=== PATIENT | female | born 1975 | race Two or more races ===

== ENCOUNTER → 2023-07-01 | Outpatient (CLI) | payer MEDICAID | END | disposition home or self-care (01) | LOC: Rad HDHVI 14:44 | PROVIDERS: ATTEND Internal Medicine Cardiovascular Disease | DX: R06.02 Shortness of breath (principal); R00.2 Palpitations | CPT/HCPCS: 93306 ==

== ENCOUNTER → 2023-07-20 | Outpatient (CLI) | payer MEDICAID ==
[~2023-07-20] VITALS: Ht 154.9 cm; Wt 89.8 kg
== END | disposition home or self-care (01) ==
LOC: Rad HDHVI 13:30
PROVIDERS: ATTEND Internal Medicine Cardiovascular Disease
DX: R06.02 Shortness of breath (principal); R00.2 Palpitations; R42 Dizziness and giddiness; I10 Essential (primary) hypertension; E78.00 Pure hypercholesterolemia, unspecified
CPT/HCPCS: 78452; 93017; 96374; A9500

== ENCOUNTER 2023-08-12 08:38 | Inpatient (IN) | payer MEDICAID ==
[~2023-08-12] VITALS: Ht 157.5 cm; Wt 103.3 kg
[2023-08-12] MEDS ORDERED: ADENOSINE 6 MG/2 ML INJ IV ONE ×2 (09:05→09:30)
[2023-08-12 09:12] LABS: Basophils # (auto) 0.1 10 ^3/uL (0-0.2); Basophils % (auto) 0.5 % (0.0-2.0); Eosinophils # (auto) 0.1 10 ^3/uL (0-0.8); Hemoglobin 12.1 g/dL (12.2-16.2); Lymphocytes # (auto) 2.5 10 ^3/uL (0.4-5.4); Mean Corpuscular Volume 73.9 fL (80.0-100.0)
[2023-08-12] MEDS ORDERED: METOPROLOL TARTRATE 1MG/1ML-5ML VIAL IV ONE ×2 (09:12→09:15)
[2023-08-12 09:14] LABS: Eosinophils % (auto) 0.7 % (0.0-7.0); Hematocrit 38.8 % (36.0-46.0); Mean Corpuscular Hemoglobin 23.1 pg (28.0-32.0); Mean Corpuscular Hgb Conc. 31.3 g/dL (32.0-36.0); Monocytes % (auto) 8.4 % (0.0-12.0); Neutrophils # (auto) 8.4 10 ^3/uL (1.6-8.6); Neutrophils % (auto) 69.4 % (37.0-80.0); Red Blood Cells 5.25 10^6/uL (4.0-5.20); White Blood Cell 12.1 10^3/uL (4.4-10.8)
[2023-08-12 09:25] LABS: Alanine Aminotransferase 19 U/L (7-40); Albumin 4.8 g/dL (3.2-4.8); Alkaline Phosphatase 78 U/L (46-116); Anion Gap 8 (5-15); Aspartate Aminotransferase 18 U/L (13-40); BUN/Creatinine Ratio 17.1 (10.0-20.0); Blood Urea Nitrogen 18 mg/dL (9-23); Calcium 9.3 mg/dL (8.7-10.4); Carbon Dioxide 25 mmol/L (20-30); Chloride 106 mmol/L (98-107); Glucose 106 mg/dL (74-106); Potassium 3.9 mmol/L (3.5-5.1); Sodium 139 mmol/L (136-145)
[2023-08-12 09:26] LABS: Bilirubin, Total 0.5 mg/dL (0.2-1.0); Total Protein 7.3 g/dL (5.7-8.2)
[2023-08-12 09:36] LABS: INR 1.04 (0.9-1.15); Partial Thromboplastin Time 27.9 SEC (24.5-34.5); Prothrombin Time 10.9 sec (9.3-11.8)
[2023-08-12] MEDS ORDERED: IOHEXOL 350 MG/ML 100ML IJ ONE (10:29)
[2023-08-12 10:45] VITALS: PULSE 81; RESP 18; O2SAT 99
[2023-08-12 12:16] LABS: Urine Bacteria NONE SEEN /hpf (None Seen); Urine Blood 3+ /uL (Negative); Urine Clarity Clear (Clear); Urine Color Yellow (Yellow); Urine Protein, UAD 1+ (Negative); Urine Specific Gravity 1.042 (1.001-1.035); Urine Urobilinogen Normal (Negative); Urine WBC 2 /hpf (0 - 5)
[2023-08-12 12:38] LABS: Amphetamine Screen, Urine Neg (NEGATIVE); Barbiturate Scree,Urine Neg (NEGATIVE); Benzodiazephine Screen, Urine Neg (NEGATIVE); Cannabinoid Screen, Urine Neg (NEGATIVE); Cocaine Screen, Urine Neg (NEGATIVE); Opiate Scree,Urine Neg (NEGATIVE); Phencyclidine Screen, Urine Neg (NEGATIVE)
[2023-08-12] MEDS ORDERED: MORPHINE SULFATE INJ 2 MG/ml SYRG IV PRN (13:00)
[2023-08-12] MEDS ORDERED: NITROGLYCERIN 0.4 MG SL TAB SL PRN (13:00)
[2023-08-12] MEDS ORDERED: DOCUSATE SOD 100 MG CAP PO PRN (13:00)
[2023-08-12] MEDS ORDERED: ACETAMINOPHEN 325 MG TAB PO PRN (13:00)
[2023-08-12] MEDS ORDERED: METOCLOPRAMIDE HCL 5MG/ml INJ 2ml VIAL IV PRN (13:00)
[2023-08-12] MEDS ORDERED: cefTRIAXone 1GM/50ML D5W 50 ML IV ONE (13:00)
[2023-08-12 13:53] LABS: Triglycerides 130 mg/dL (< 150)
[2023-08-12 13:54] LABS: LDL Cholesterol 124 mg/dL (< 100)
[2023-08-12 13:55] LABS: Cholesterol 174 mg/dL (< 200); HDL Cholesterol 43 mg/dL (40-59)
[2023-08-12 19:30] VITALS: PULSE 80; RESP 20; O2SAT 96
[2023-08-12] MEDS: METOPROLOL TARTRATE 25 MG TAB PO SCH (21:48)
[2023-08-12 23:21] VITALS: BP 113/64; PULSE 78; RESP 18; TEMP 98.3; O2SAT 99
[2023-08-12] MEDS ORDERED: METO25TA5 PO (23:45)
[2023-08-12] MEDS ORDERED: OMEP20TA PO (23:45)
[2023-08-12] MEDS ORDERED: SIMV20TA20 PO (23:45)
[2023-08-12] MEDS ORDERED: MAGN400T40 PO (23:45)
[2023-08-12] MEDS ORDERED: LEVO125T7 PO (23:45)
[2023-08-12] MEDS ORDERED: LOSA50TA46 PO (23:45)
[2023-08-13] VITALS (7 sets, daily range): BP systolic 101–131; BP diastolic 47–73; PULSE 71–83; RESP 16–17; TEMP 98.2–99.1; O2SAT 95–98
[2023-08-13] MEDS: LEVOTHYROXINE SODIUM 50 MCG TAB PO SCH (06:10)
[2023-08-13 07:30] LABS: Alanine Aminotransferase 13 U/L (7-40); Albumin 4.1 g/dL (3.2-4.8); Alkaline Phosphatase 63 U/L (46-116); Anion Gap 7 (5-15); Aspartate Aminotransferase 13 U/L (13-40); BUN/Creatinine Ratio 17.1 (10.0-20.0); Bilirubin, Total 0.4 mg/dL (0.2-1.0); Blood Urea Nitrogen 12 mg/dL (9-23); Calcium 8.6 mg/dL (8.7-10.4); Carbon Dioxide 25 mmol/L (20-30); Chloride 109 mmol/L (98-107); Glucose 118 mg/dL (74-106); Magnesium 2.1 mg/dL (1.6-2.6); Sodium 141 mmol/L (136-145); Total Protein 6.6 g/dL (5.7-8.2)
[2023-08-13 09:20] LABS: Basophils # (auto) 0 10 ^3/uL (0-0.2); Basophils % (auto) 0.5 % (0.0-2.0); Eosinophils # (auto) 0.1 10 ^3/uL (0-0.8); Eosinophils % (auto) 1.9 % (0.0-7.0); Hematocrit 35.7 % (36.0-46.0); Hemoglobin 11.3 g/dL (12.2-16.2); Lymphocytes # (auto) 2.1 10 ^3/uL (0.4-5.4); Lymphocytes % (auto) 33.3 % (10.0-50.0); Mean Corpuscular Hemoglobin 23.5 pg (28.0-32.0); Mean Corpuscular Hgb Conc. 31.5 g/dL (32.0-36.0); Mean Corpuscular Volume 74.4 fL (80.0-100.0); Monocytes # (auto) 0.5 10 ^3/uL (0-1.3); Monocytes % (auto) 7.2 % (0.0-12.0); Neutrophils # (auto) 3.6 10 ^3/uL (1.6-8.6); Neutrophils % (auto) 57.1 % (37.0-80.0); Red Cell Distribution Width 16.3 % (11.8-14.3); White Blood Cell 6.3 10^3/uL (4.4-10.8)
[2023-08-13] MEDS: cefTRIAXone 1GM/50ML D5W 50 ML IV SCH (10:16)
[2023-08-13] MEDS: ENOXAPARIN SOD 40 MG/0.4 ML SYRINGE SC SCH (10:28)
[2023-08-13] MEDS: METOPROLOL TARTRATE 25 MG TAB PO SCH ×2 (10:29→22:01)
[2023-08-13] MEDS: PANTOPRAZOLE 40 MG TAB PO SCH (10:30)
[2023-08-13] MEDS ORDERED: ERGOCALCIFEROL 50,000 UNIT(1.25MG) CAP PO SCH (11:15)
[2023-08-13] MEDS ORDERED: CALCIUM GLUC 1,000mg/50ml-NS 50 ML IV ONE (11:15)
[2023-08-13] MEDS: ATORVASTATIN 20 MG TAB PO SCH (22:00)
[2023-08-14 05:00] VITALS: BP 107/55; PULSE 70; RESP 15; TEMP 98.4; O2SAT 95
[2023-08-14] MEDS: LEVOTHYROXINE SODIUM 50 MCG TAB PO SCH (06:19)
[2023-08-14 07:00] LABS: Basophils # (auto) 0 10 ^3/uL (0-0.2); Eosinophils # (auto) 0.1 10 ^3/uL (0-0.8); Monocytes # (auto) 0.5 10 ^3/uL (0-1.3)
[2023-08-14 07:06] LABS: Basophils % (auto) 0.6 % (0.0-2.0); Eosinophils % (auto) 2.1 % (0.0-7.0); Hematocrit 36.5 % (36.0-46.0); Hemoglobin 11.4 g/dL (12.2-16.2); Lymphocytes # (auto) 1.7 10 ^3/uL (0.4-5.4); Lymphocytes % (auto) 25.7 % (10.0-50.0); Mean Corpuscular Hemoglobin 23.3 pg (28.0-32.0); Mean Corpuscular Hgb Conc. 31.3 g/dL (32.0-36.0); Mean Corpuscular Volume 74.3 fL (80.0-100.0); Monocytes % (auto) 7.2 % (0.0-12.0); Neutrophils # (auto) 4.3 10 ^3/uL (1.6-8.6); Neutrophils % (auto) 64.4 % (37.0-80.0); Red Cell Distribution Width 15.7 % (11.8-14.3); White Blood Cell 6.7 10^3/uL (4.4-10.8)
[2023-08-14 07:50] LABS: Alanine Aminotransferase 14 U/L (7-40); Albumin 4.4 g/dL (3.2-4.8); Alkaline Phosphatase 65 U/L (46-116); Anion Gap 7 (5-15); Aspartate Aminotransferase 14 U/L (13-40); BUN/Creatinine Ratio 14.7 (10.0-20.0); Blood Urea Nitrogen 11 mg/dL (9-23); Calcium 9.4 mg/dL (8.5-10.1); Carbon Dioxide 25 mmol/L (20-30); Chloride 108 mmol/L (98-107); Glucose 116 mg/dL (74-106); Potassium 4.1 mmol/L (3.5-5.1); Sodium 140 mmol/L (136-145)
[2023-08-14 07:51] LABS: Bilirubin, Total 0.3 mg/dL (0.2-1.0)
[2023-08-14 08:00] VITALS: BP 120/61; PULSE 72; PULSE 84; RESP 17; TEMP 98.1; O2SAT 93
[2023-08-14] MEDS: PANTOPRAZOLE 40 MG TAB PO SCH (08:40)
[2023-08-14] MEDS: cefTRIAXone 1GM/50ML D5W 50 ML IV SCH (08:41)
[2023-08-14] MEDS: METOPROLOL TARTRATE 25 MG TAB PO SCH ×2 (08:41→21:08)
[2023-08-14] MEDS: ENOXAPARIN SOD 40 MG/0.4 ML SYRINGE SC SCH (08:41)
[2023-08-14 09:31] VITALS: BP 120/61; PULSE 72; RESP 17; TEMP 98.1; O2SAT 93
[2023-08-14 17:14] VITALS: BP 119/75; PULSE 77; RESP 17; TEMP 98.2; O2SAT 96
[2023-08-14 20:00] VITALS: PULSE 74; RESP 17; O2SAT 93
[2023-08-14] MEDS: ATORVASTATIN 20 MG TAB PO SCH (21:07)
[2023-08-14 22:00] VITALS: BP 118/79; PULSE 77; RESP 18; TEMP 98.2; O2SAT 97
[2023-08-15 05:00] VITALS: BP 131/79; PULSE 72; RESP 18; TEMP 98.3; O2SAT 95
[2023-08-15] MEDS: LEVOTHYROXINE SODIUM 50 MCG TAB PO SCH (06:17)
[2023-08-15 08:00] VITALS: PULSE 74; PULSE 77; RESP 14; O2SAT 93
[2023-08-15 09:00] VITALS: BP 125/77; PULSE 68; RESP 16; TEMP 98.7; O2SAT 96
[2023-08-15] MEDS: PANTOPRAZOLE 40 MG TAB PO SCH (09:22)
[2023-08-15] MEDS: ENOXAPARIN SOD 40 MG/0.4 ML SYRINGE SC SCH (09:22)
[2023-08-15] MEDS: cefTRIAXone 1GM/50ML D5W 50 ML IV SCH (09:22)
[2023-08-15] MEDS: METOPROLOL TARTRATE 25 MG TAB PO SCH (09:23)
[2023-08-15 10:16] LABS: Basophils # (auto) 0 10 ^3/uL (0-0.2); Basophils % (auto) 0.5 % (0.0-2.0); Eosinophils # (auto) 0.1 10 ^3/uL (0-0.8); Eosinophils % (auto) 1.6 % (0.0-7.0); Hematocrit 36.6 % (36.0-46.0); Hemoglobin 11.6 g/dL (12.2-16.2); Lymphocytes # (auto) 1.5 10 ^3/uL (0.4-5.4); Lymphocytes % (auto) 23.8 % (10.0-50.0); Mean Corpuscular Hemoglobin 23.4 pg (28.0-32.0); Mean Corpuscular Hgb Conc. 31.7 g/dL (32.0-36.0); Mean Corpuscular Volume 74.1 fL (80.0-100.0); Monocytes # (auto) 0.4 10 ^3/uL (0-1.3); Monocytes % (auto) 5.7 % (0.0-12.0); Neutrophils # (auto) 4.4 10 ^3/uL (1.6-8.6); Neutrophils % (auto) 68.4 % (37.0-80.0); Red Blood Cells 4.94 10^6/uL (4.0-5.20); Red Cell Distribution Width 15.7 % (11.8-14.3); White Blood Cell 6.4 10^3/uL (4.4-10.8)
[2023-08-15 10:31] LABS: % Iron Saturation 8.5 % (15-50)
[2023-08-15 10:34] LABS: Alanine Aminotransferase 15 U/L (7-40); Albumin 4.6 g/dL (3.2-4.8); Alkaline Phosphatase 73 U/L (46-116); Anion Gap 8 (5-15); Aspartate Aminotransferase 15 U/L (13-40); BUN/Creatinine Ratio 12.3 (10.0-20.0); Blood Urea Nitrogen 9 mg/dL (9-23); Calcium 9.3 mg/dL (8.5-10.1); Carbon Dioxide 24 mmol/L (20-30); Chloride 108 mmol/L (98-107); Glucose 131 mg/dL (74-106); Potassium 3.6 mmol/L (3.5-5.1); Sodium 140 mmol/L (136-145)
[2023-08-15 10:35] LABS: Bilirubin, Total 0.3 mg/dL (0.2-1.0); Total Protein 7.2 g/dL (5.7-8.2)
[2023-08-15 10:41] LABS: Magnesium,Therapeutic 1.87 mg/dL (4.0-7.1)
[2023-08-15 13:19] VITALS: BP 141/89; PULSE 77; RESP 20; TEMP 98.7; O2SAT 98
[2023-08-15 16:45] VITALS: BP 153/87; PULSE 84; RESP 12; TEMP 37.1; O2SAT 92
[2023-08-15 17:20] VITALS: BP 128/68; PULSE 76; RESP 18; TEMP 98.3; O2SAT 94
== END 2023-08-15 18:38 | disposition home or self-care (01) | DRG 201 ==
LOC: ER 08:38 → TELE 13:03 → TELE-WESTW 22:39
PROVIDERS: ADMIT Internal Medicine; ATTEND Internal Medicine
DX: I47.19 Other supraventricular tachycardia (principal); I21.A1 Myocardial infarction type 2; I10 Essential (primary) hypertension; N39.0 Urinary tract infection, site not specified; E03.9 Hypothyroidism, unspecified; K21.9 Gastro-esophageal reflux disease without esophagitis; E78.5 Hyperlipidemia, unspecified; E55.9 Vitamin D deficiency, unspecified; Z91.148 Patient's other noncompliance with medication regimen for other reason
CPT/HCPCS: 36415; 71045; 71275; 80053; 80061; 80307; 81001; 82306; 82607; 82746; 83036; 83540; 83550; 83615; 83735; 83880; 84443; 84484; 85025; 85045; 85379; 85610; 85730; 87086; 92960; 93005; 93306; 96365; 96375; 99291; G0378; J0153; J0696

== ENCOUNTER → 2023-09-21 | Outpatient (CLI) | payer MEDICAID ==
[~2023-09-21] MED LIST: IOHEXOL 350 MG/ML 100ML IJ ONE; LEVO125T7 PO; LIDOCAINE 2%HCL (LOCAL ANESTH.) INJ 20ML MDV ONE; LOSA50TA46 PO; MAGN400T40 PO; METO25TA5 PO; OMEP20TA PO; SIMV20TA20 PO
[2023-09-21 08:55] VITALS: BP 144/67; PULSE 72; RESP 16; O2SAT 97
[2023-09-21 09:11] VITALS: BP 134/63; PULSE 70; RESP 16; O2SAT 97
== END | disposition home or self-care (01) ==
LOC: CHF HDHVI 08:47
PROVIDERS: ATTEND Internal Medicine Cardiovascular Disease
DX: Z01.818 Encounter for other preprocedural examination (principal); R94.31 Abnormal electrocardiogram [ECG] [EKG]; R00.2 Palpitations; R06.02 Shortness of breath; R07.9 Chest pain, unspecified
CPT/HCPCS: 93005; G0463

== ENCOUNTER 2023-09-22 08:22 | Day surgery (SDC) | payer MEDICAID ==
[2023-09-21 10:30] LABS: Basophils # (auto) 0 10 ^3/uL (0-0.2); Eosinophils # (auto) 0.2 10 ^3/uL (0-0.8); Lymphocytes # (auto) 1.8 10 ^3/uL (0.4-5.4); Monocytes # (auto) 0.6 10 ^3/uL (0-1.3); Monocytes % (auto) 7.3 % (0.0-12.0)
[2023-09-21 10:32] LABS: Basophils % (auto) 0.4 % (0.0-2.0); Eosinophils % (auto) 2.1 % (0.0-7.0); Hematocrit 36.8 % (36.0-46.0); Hemoglobin 11.7 g/dL (12.2-16.2); Lymphocytes % (auto) 23.9 % (10.0-50.0); Mean Corpuscular Hemoglobin 23.3 pg (28.0-32.0); Mean Corpuscular Hgb Conc. 31.7 g/dL (32.0-36.0); Mean Corpuscular Volume 73.4 fL (80.0-100.0); Neutrophils % (auto) 66.3 % (37.0-80.0); Red Blood Cells 5.02 10^6/uL (4.0-5.20); Red Cell Distribution Width 15.6 % (11.8-14.3); White Blood Cell 7.5 10^3/uL (4.4-10.8)
[2023-09-21 10:39] LABS: Chloride 105 mmol/L (98-107); Potassium 4.3 mmol/L (3.5-5.1); Sodium 139 mmol/L (136-145)
[2023-09-21 10:40] LABS: Anion Gap 7 (5-15); Carbon Dioxide 27 mmol/L (20-30)
[2023-09-21 10:41] LABS: Calcium 9.5 mg/dL (8.5-10.1)
[2023-09-21 10:45] LABS: BUN/Creatinine Ratio 9.9 (10.0-20.0); Blood Urea Nitrogen 7 mg/dL (9-23); Glucose 99 mg/dL (74-106)
[2023-09-21 10:50] LABS: INR 1.05 (0.9-1.15); Partial Thromboplastin Time 25.5 SEC (24.5-34.5)
[~2023-09-22] VITALS: Ht 154.9 cm; Wt 93.4 kg
[2023-09-22] VITALS (8 sets, daily range): BP systolic 111–127; BP diastolic 44–73; PULSE 67–75; RESP 16–20; O2SAT 95–100
[~2023-09-22 08:22] MED LIST changes: -IOHEXOL 350 MG/ML 100ML IJ ONE; -LIDOCAINE 2%HCL (LOCAL ANESTH.) INJ 20ML MDV ONE
[2023-09-22] MEDS ORDERED: fentaNYL CITRATE 100 MCG/2 ML VL ONE (11:45)
[2023-09-22] MEDS ORDERED: ANGIOMAX 250 MG VIAL IV ONE (11:45)
[2023-09-22] MEDS ORDERED: MIDAZOLAM HCL 2MG/2ML 2ml VIAL (1mg/ml) ONE (11:46)
[2023-09-22] MEDS ORDERED: SODIUM CHL 0.9% 0 ML ONE (11:46)
[2023-09-22] MEDS ORDERED: IOHEXOL 350 MG/ML 100ML IJ ONE (12:35)
== END 2023-09-22 16:10 | disposition home or self-care (01) ==
LOC: CATH 08:22
PROVIDERS: ATTEND Internal Medicine Cardiovascular Disease
DX: R07.9 Chest pain, unspecified (principal); Z83.3 Family history of diabetes mellitus; Z82.49 Family history of ischemic heart disease and other diseases of the circulatory system
CPT/HCPCS: 36415; 80048; 85025; 85610; 85730; 93458; C1894; J2250; J3010; Q9967; 99152

== ENCOUNTER 2025-05-14 13:29 | Inpatient (IN) | payer MEDICAID, OTHER, SELFPAY ==
[~2025-05-14] VITALS: Ht 160 cm; Wt 86.0 kg
[~2025-05-14 13:29] MED LIST changes: +LOSA-534 PO; -LOSA50TA46 PO
--- NOTE | 2025-05-14 14:45 | ED.PDOC ---
HPI (NEURO) HPI Comments 49-year-old female with a history of hypertension, dyslipidemia, hypothyroid, GERD, SVT, non STEMI type 2 referred by [facility] for evaluation of dizziness, blurred vision, sweating, generalized weakness, headache, body aches and palpitations since yesterday. Patient notes the symptoms are intermittent and not occurring at the time of our initial evaluation. States when the symptoms occur, she feels as though she may pass out. She denies fever, sick contacts, focal weakness, chest pain, shortness of breath, nausea or vomiting. Chief Complaint: General Weakness Time Seen by MD: 14:00 Reviewed Notes: Nurses Notes, Medications, Allergies Information Source: Patient Mode of Arrival: Ambulatory Severity: Moderate Timing: Days Duration: Since onset Prehospital treatment: None Headache Location: Generalized Weakness Location: Generalized Onset: At rest Circumstances: Spontaneous Symptoms: Vertigo, Weakness, Change of vision Before: Normal During: Awake After: Normal Mentation History of: Hypertension Modifying factors: Nothing Associated Signs and Symptoms: Headache, Palpitations Past Medical History PAST MEDICAL HISTORY: GERD, High Lipids, HTN, Thyroid Past Medical History (Other): SVT Surgical History: Denies all surgeries UTILITY DRIVER History: No Pertinent UTILITY DRIVER History Family History Family History: Unknown Social History Smoker: Non-Smoker Alcohol: Denies ETOH Use Drugs: Denies Drug Use Lives In: Home Constitutional: reports: fatigue; denies: chills, diaphoresis, fever, malaise, sweats, weakness, others EENTM: reports: blurred vision; denies: double vision, ear bleeding, ear discharge, ear drainage, ear pain, ear ringing, eye pain, eye redness, hearing loss, mouth pain, mouth swelling, nasal discharge, nose bleeding, nose con gestion, nose pain, photophobia, tearing, throat pain, throat swelling, voice changes, others Respiratory: denies: cough, hemoptysis, orthopnea, SOB at rest, shortness of breath, SOB with excertion, stridor, wheezing, others Cardiovascular: denies: chest pain, dizzy spells, diaphoresis, Dyspnea on exertion, edema, irregular heart beat, left arm pain, lightheadedness, palpitations, PND, syncope, others Gastrointestinal: denies: abdomen distended, abdominal pain, blood streaked bowels, constipated, diarrhea, dysphagia, difficulty swallowing, hematemesis, melena, nausea, poor appetite, poor fluid intake, rectal bleeding, rectal pain, vomiting, others Genitourinary: denies: abnormal vagina bleeding, burning, dyspareunia, dysuria, flank pain, frequency, hematuria, incontinence, pain, , vagina d ischarge, urgency, others Neurological: reports: dizziness, headache; denies: fainting, left sided numbness, left sided weakness, numbness, paresthesia, pre-existing deficit, right sided numbness, right sided weakness, seizure, speech problems, tingling, tremors, weakness, others Musculoskeletal: denies: back pain, gout, joint pain, joint swelling, muscle pain, muscle stiffness, neck pain, others Integumetry: denies: bruises, change in color, change in hair/nails, dryness, laceration, lesions, lumps, rash, wounds, others Allergic/Immunocompromised: denies: Difficulty Healing, Frequent Infections, Hives, Itching, others Hematologic/Lymphatic: denies: anemia, blood clots, easy bleeding, easy bruising, swollen glands, others Endocrine: denies: excessive hunger, excessive sweating, excessive thirst, excessive urination, flushing, intolerance to cold, intolerance to heat, unexplained weight gain, unexplained weight loss, others Psychiatric: denies: anxiety, bipolar disorder, depression, hopeless, panic disorder, schizophrenia, sleepless, suicidal, others All Other Systems: Reviewed and Negative Physical Exam General Appearance: No Apparent Distress, Obese HEENT: Other (Pupils and face symmetric. Moist mucous membranes.) Neck: Full Range of Motion, Normal Inspection Respiratory: Lungs Clear, No Accessory Muscle Use, No Respiratory Distress, Normal Breath Sounds Cardiovascular: No Edema, No JVD, Regular Rate/Rhythm Breast Exam: Deferred Gastrointestinal: Non Tender, Soft Genitalia: Deferred Pelvic: Deferred Rectal: Deferred Extremities: Normal inspection, Normal range of motion, Non-tender, No pedal edema Neurologic: Alert (Oriented x4), Normal Affect, Normal Mood, Other (Ambulatory) Cerebellar Function: NOT DONE Reflexes: NOT DONE Skin: Dry, Normal Color, Warm Lymphatic: NOT DONE Was a procedure done? Was a procedure done?: No Differential Diagnosis (SZ) Seizure: CVA/TIA CVA: Electrolyte Imbalance General Weakness: Anemia, Dehydration, Dysrhythmia, Hypovolemia, Myocardial infarction Headache: Cluster, Migraine, Intracerebral Hemorrhage, Subarachnoid Hemorrhage, Subdural Hemorrhage, Mass Lesion X-Ray, Labs, Meds, VS Vital Signs Date Time Temp Pulse Resp B/P (MAP) Pulse Ox O2 Delivery O2 Flow Rate FiO2 05/14/25 18:12 98.7 72 18 134/88 (103) 99 98.7 05/14/25 13:44 79 05/14/25 13:35 99.0 82 18 131/98 95 99.0 Lab Test 05/14/25 18:30 05/14/25 17:39 05/14/25 15:40 05/14/25 14:58 Range/Units Urine Color Light-yellow Yellow Urine Clarity Turbid H Clear Urine pH 6.5 5.0-9.0 Urine Specific [place] 1.023 1.001-1.035 Urine Protein 1+ H Negative Urine Ketones Negative Negative Urine Blood Negative Negative /uL Urine Nitrite Negative Negative Urine Bilirubin Negative Negative Urine Urobilinogen Normal Negative mg/dL Urine Leukocyte Esterase Trace Negative /uL Urine RBC <1 0 - 4 /hpf Urine Microscopic WBC 11 H 0-5 /HPF Urine Squamous Epithelial Cells Mod <5 /hpf Urine Bacteria Few H None Seen /hpf Urine Hyaline Casts Few 0 - 2 /lpf Urine Mucus Few None Seen Urine Glucose Normal Normal mg/dL Troponin I High Sensitivity < 3 L < 3 L < 3 L </=34 ng/L White Blood Count 6.5 4.4-10.8 10^3/uL Red Blood Count 4.91 4.0-5.20 10^6/uL Hemoglobin 11.8 L 12.2-16.2 g/dL Hematocrit 36.2 36.0-46.0 % Mean Corpuscular Volume 73.6 L 80.0-100.0 fL Mean Corpuscular Hemoglobin 24.1 L 28.0-32.0 pg Mean Corpuscular Hemoglobin Concent 32.7 32.0-36.0 g/dL Red Cell Distribution Width 16.0 H 11.8-14.3 % Platelet Count 348 140-450 10^3/uL Mean Platelet Volume 7.0 6.9-10.8 fL Neutrophils (%) (Auto) 70.9 37.0-80.0 % Lymphocytes (%) (Auto) 21.7 10.0-50.0 % Monocytes (%) (Auto) 5.9 0.0-12.0 % Eosinophils (%) (Auto) 1.1 0.0-7.0 % Basophils (%) (Auto) 0.4 0.0-2.0 % Neutrophils # (Auto) 4.6 1.6-8.6 10 ^3/uL Lymphocytes # (Auto) 1.4 0.4-5.4 10 ^3/uL Monocytes # (Auto) 0.4 0-1.3 10 ^3/uL Eosinophils # (Auto) 0.1 0-0.8 10 ^3/uL Basophils # (Auto) 0 0-0.2 10 ^3/uL Nucleated Red Blood Cells 0.0 % Sodium Level 143 136-145 mmol/L Potassium Level 4.0 3.5-5.1 mmol/L Chloride Level 106 98-107 mmol/L Carbon Dioxide Level 28 20-31 mmol/L Anion Gap 9 5-15 Blood Urea Nitrogen 12 9-23 mg/dL Creatinine 0.89 0.550-1.02 mg/dL Glomerular Filtration Rate Calc 80 >90 mL/min BUN/Creatinine Ratio 13.5 10.0-20.0 Serum Glucose 108 H 74-106 mg/dL Calcium Level 9.4 8.7-10.4 mg/dL B-Type Natriuretic Peptide 8.69 0-100 pg/mL [place] [id number] Ph: [phone] DIAGNOSTIC IMAGING Diagnostic Imaging Report : [id number] Signed PATIENT: KARTHIK CHARLESAACCT: [id number] UNIT: [id number] : 1975 LOC: ER ROOM / BED: / AGE / SEX: 49 / F ADM STATUS: REG ER SERVICE [id number] ORDERING PHYSICIAN: KIEL POE MD PROCEDURE(s): CXRP - CHEST PORTABLE REASON: gen weak ORDER NUMBER(s): [id number], ACCESSION NUMBER(s): [id number] CHEST RADIOGRAPH Indication: gen weak Technique: Single frontal view of the chest was obtained Comparison: XY CHEST TWO VIEWS ROUTINE on DOS: 09/21/23, CT CT ANGIO CHEST CONTRAST on DOS: 08/12/23, XY CHEST PORTABLE on DOS: 08/12/23 FINDINGS: Lines and Tubes: None Lungs: No focal consolidation. Pleura: No effusion. No pneumothorax. Cardiomediastinal contours: Unremarkable Bones: No acute osseous abnormality. IMPRESSION: No acute cardiopulmonary disease. ATED BY: MONIKA DAY DO DICTATED DATE/TIME: 05/14/251741 SIGNED BY: MONIKA DAY DO SIGNED DATE/TIME: 05/14/251741 CC: [place] [id number] Ph: [phone] DIAGNOSTIC IMAGING Diagnostic Imaging Report : [id number] Signed PATIENT: STACI CHARLESCT: [id number] UNIT: [id number] : 1975 LOC: ER ROOM / BED: / AGE / SEX: 49 / F ADM STATUS: REG ER SERVICE [id number] ORDERING PHYSICIAN: KIEL POE MD PROCEDURE(s): HWOCT - HEAD WITHOUT CONTRAST REASON: dizzy, blurred vision, gen weak ORDER NUMBER(s): [id number], ACCESSION NUMBER(s): [id number] CLINICAL HISTORY: dizzy, blurred vision, gen weak TECHNIQUE: Helical scanning was performed of the head from the skull base to the vertex. Multiplanar reconstructions were performed. This exam was performed according to our departmental dose optimization program. Up-to-date CT equipment and radiation dose reduction techniques are utilized as appropriate. CTDI 57.7 DLP 139.2 COMPARISON: None FINDINGS: There is no evidence for acute intracranial hemorrhage, acute ischemic changes, mass, mass effect, or extra-axial fluid collection. There is no hydrocephalus or midline shift. There is no effacement of the cerebral sulci and basal subarachnoid cisterns. The leung-white matter differentiation is well maintained. The imaged paranasal sinuses are clear. The savanah is expanded and empty. IMPRESSION: NO ACUTE INTRACRANIAL ABNORMALITY SEEN. EXPANDED EMPTY SAVANAH. ATED BY: JACKY PINEDA MD DICTATED DATE/TIME: 05/14/251726 SIGNED BY: JACKY PINEDA MD SIGNED DATE/TIME: 05/14/25 0834 CC: X-Ray, Labs, Meds, VS Comment 49-year-old female with a history of hypertension, dyslipidemia, hypothyroid, GERD, SVT, non STEMI type 2 complaining of dizziness, blurred vision, sweating, generalized weakness, headache, body aches and palpitations since yesterday Vitals remarkable for BP 131/98 Exam unremarkable Rhythm strip independently interpreted by me: Sinus rhythm, rate 82, no ectopy. CT head IMPRESSION: NO ACUTE INTRACRANIAL ABNORMALITY SEEN. EXPANDED EMPTY SAVANAH. Chest x-ray IMPRESSION: No acute cardiopulmonary disease. CBC, basic metabolic panel, BNP and troponin unremarkable UA abnormal consistent with UTI Patient treated with the following in the ED: [place] 5/325 mg p.o., Rocephin 1 g IV On re-evaluation, headache has improved. Vitals were stable. Patient has multiple cardiac and stroke risk factors. Symptoms are concerning for ACS, arrhythmia and/or TIA. Plan is to admit the patient for brain MRI, neurology and Cardiology evaluation. Time of 1ST Reevaluation: 14:30 Reevaluation 1ST: Unchanged Patient Education/Counseling: Diagnosis, Treatment Family Education/Counseling: No Family Present Departure 1 Departure Time of Disposition: 17:25 Impression: Primary Impression: Pre-syncope Additional Impression: UTI (urinary tract infection) Qualified Codes: N39.0 - Urinary tract infection, site not specified Disposition: ADMITTED INPATIENT Admit to: Med Surg Condition: Guarded Critical Care Note Critical Care Time?: No Stability Stability form required: No Heart Score Heart Score: Heart Score Response (Comments) Value History N/A 0 EKG N/A 0 Age N/A 0 Risk Factors N/A 0 Troponin N/A 0 Total 0 I personally scribed for KIEL POE MD ([email or web address]) on 05/14/25 at 14:45. Electronically submitted by Negin Denny ([email or web address]). I personally scribed for KIEL POE MD ([email or web address]) on 05/14/25 at 18:07. Electronically submitted by Negin Denny ([email or web address]). I personally scribed for KIEL POE MD ([email or web address]) on 05/14/25 at 18:08. Electronically submitted by Negin Denny ([email or web address]). KIEL POE MD May 14, 2025 14:45
[2025-05-14 15:29] LABS: Chloride 106 mmol/L (98-107); Potassium 4.0 mmol/L (3.5-5.1); Sodium 143 mmol/L (136-145)
[2025-05-14 15:30] LABS: Anion Gap 9 (5-15); Carbon Dioxide 28 mmol/L (20-31)
[2025-05-14 15:31] LABS: Calcium 9.4 mg/dL (8.7-10.4)
[2025-05-14 15:35] LABS: BUN/Creatinine Ratio 13.5 (10.0-20.0); Blood Urea Nitrogen 12 mg/dL (9-23)
[2025-05-14 15:36] LABS: Hematocrit 36.2 % (36.0-46.0); Hemoglobin 11.8 g/dL (12.2-16.2); Mean Corpuscular Hemoglobin 24.1 pg (28.0-32.0); Mean Corpuscular Volume 73.6 fL (80.0-100.0); Nucleated Red Blood Cells % 0.0 %
[2025-05-14 15:41] LABS: Glucose 108 mg/dL (74-106)
--- NOTE | 2025-05-14 17:29 | DVH ---
CLINICAL HISTORY: dizzy, blurred vision, gen weak TECHNIQUE: Helical scanning was performed of the head from the skull base to the vertex. Multiplanar reconstructions were performed. This exam was performed according to our departmental dose optimizat ion program. Up-to-date CT equipment and radiation dose reduction techniques are utilized as appropri ate. CTDI 57.7 DLP 139.2 COMPARISON: None FINDINGS: There is no evidence for acute intracranial hemorrhage, acute ischemic changes, mass, mass effect, or extra-axial fluid collection. There is no hydrocephalus or midline shift. There is no effacement of the cerebral sulci and basal subarachnoid cisterns. The leung-white matter differentiation is well mercedes ntained. The imaged paranasal sinuses are clear. The rayna is expanded and empty. IMPRESSION: NO ACUTE INTRACRANIAL ABNORMALITY SEEN. EXPANDED EMPTY RAYNA.
--- NOTE | 2025-05-14 17:44 | DVH ---
CHEST RADIOGRAPH Indication: gen weak Technique: Single frontal view of the chest was obtained Comparison: XY CHEST TWO VIEWS ROUTINE on DOS: 09/21/23, CT CT ANGIO CHEST CONTRAST on DOS: 08/12/23, X Y CHEST PORTABLE on DOS: 08/12/23 FINDINGS: Lines and Tubes: None Lungs: No focal consolidation. Pleura: No effusion. No pneumothorax. Cardiomediastinal contours: Unremarkable Bones: No acute osseous abnormality. IMPRESSION: No acute cardiopulmonary disease.
[2025-05-14] MEDS: HYDROcodone-ACET 5/325MG TAB PO ONE (18:08)
[2025-05-14 19:08] LABS: Urine Protein, UAD 1+ (Negative)
[2025-05-15] MEDS ORDERED: HYDROcodone-ACET 5/325MG TAB PO PRN
[2025-05-15] MEDS ORDERED: DOCUSATE SOD 100 MG CAP PO PRN
[2025-05-15] MEDS ORDERED: MORPHINE SULFATE INJ 2 MG/ml SYRG IV PRN
[2025-05-15] MEDS ORDERED: ACETAMINOPHEN 325 MG TAB PO PRN
[2025-05-15] MEDS ORDERED: ONDANSETRON HCL 4 MG/2 ML VIAL IV PRN
[2025-05-15 01:57] VITALS: PULSE 71; RESP 14; O2SAT 98
[2025-05-15 05:33] LABS: Hematocrit 36.9 % (36.0-46.0); Hemoglobin 12.1 g/dL (12.2-16.2)
[2025-05-15 05:35] LABS: Mean Corpuscular Hemoglobin 24.3 pg (28.0-32.0); Mean Corpuscular Volume 74.3 fL (80.0-100.0); Nucleated Red Blood Cells % 0.0 %
[2025-05-15 05:41] LABS: Alanine Aminotransferase 14 U/L (7-40); Albumin 4.8 g/dL (3.2-4.8); Alkaline Phosphatase 67 U/L (46-116); Anion Gap 8 (5-15); BUN/Creatinine Ratio 18.5 (10.0-20.0); Bilirubin, Total 0.3 mg/dL (0.2-1.0); Blood Urea Nitrogen 12 mg/dL (9-23); Calcium 9.3 mg/dL (8.7-10.4); Carbon Dioxide 27 mmol/L (20-31); Chloride 106 mmol/L (98-107); Glucose 103 mg/dL (74-106); Potassium 4.4 mmol/L (3.5-5.1); Sodium 141 mmol/L (136-145); Total Protein 7.7 g/dL (5.7-8.2)
[2025-05-15 06:31] LABS: Beta HCG, Quantitative 0.4 mIU/mL (1.5-4.2)
[2025-05-15 06:33] LABS: Ferritin 2.8 ng/mL (10-291)
[2025-05-15 06:35] LABS: Thyroid Stimulating Hormone 2.45 uIU/mL (0.55-4.78)
[2025-05-15] MEDS: MONTELUKAST SODIUM 10 MG TAB PO ONE (06:39)
[2025-05-15 06:47] LABS: Free T3 2.59 pg/mL (2.3-4.2); Free T4 (Free Thyroxine) 1.49 ng/dL (0.89-1.76)
[2025-05-15 07:31] LABS: Total Iron Binding Capacity 389.0 ug/dL (250-425)
[2025-05-15 07:55] LABS: Iron 28.0 ug/dL (50-170)
--- NOTE | 2025-05-15 08:20 | DVH ---
Carotid Duplex Date: 05/15/2025 07:22 AM Clinical History: to rule out carotid stenosis Comparison: None Technique: Duplex Doppler evaluation of the extracranial carotid and vertebral arteries including col or Doppler and spectral/pulsed waveform analysis was performed. Findings: Velocities and ratios within normal limits. Bilateral antegrade vertebral artery flow. IMPRESSION: No hemodynamically significant stenosis noted in the right carotid system. No hemodynamically significant stenosis noted in the left carotid system. Reference: Radiology 2003; 229:340-346
--- NOTE | 2025-05-15 08:46 | DVHHPRES ---
History of Present Illness Resident Creating Document: KATHARINE WALLER RESIDENT History of Present Illness 49-year-old female with past medical history of hypertension, type 2 diabetes mellitus, dyslipidemia, supra ventricular tachycardia came in with complaints of dizziness and headache since 1 day. She complains of associated headache, involving the whole head, on and off infrequency. In the ED, labs showed microcytic anemia and urinary tract infection. The dizziness is being evaluated due to the history of supraventricular tachycardia and the patient is being ad mitted to telemetry. Review of Systems Review of Systems General: patient denies dizziness, fever, fatigue, weaknes, sweating, any recent changes in appetite and weight HEENT: No headaches, visiual changes, hearing loss, tinnitus, nasal congestion and discharge, and sore throat. Cardiovascular: Denies chest pain, palpitations, dyspnea on exertion, orthopnea, or claudication. Respiratory: No cough, and wheezing. Gastrointestinal: Denies nausea, vomiting, dysphagia, odynophagia, heartburn, abdominal pain, flatulence, bloating, diarrhea, constipation, change in stool, or blood in stool. Genitourinary: No dysuria, hematuria, discharge, frequency, urgency, nocturia, incontinence, and urinary retention. Endocrine: No heat or cold intolerance, polydipsia, polyuria, and polyphagia. Neurological: No dizziness, extremity weakness and numbness, tremors, gait disturbance, seizures, and memory impairment. Psychiatric: Denies depression, anxiety,or insomnia. Musculoskeletal: Denies neck pain, stiffness and swelling, back pain, muscle weakness, joint pain, stiffness, swelling, or limited range of motion. Skin: No rashes, itching, skin lesion, changes in hair, nail, skin texture and breast. Hematologic/Lymphatic: Denies easy bruising, bleeding tendencies, or lymph node enlargement. Allergies: Coded Allergies: No Known Drug Allergy (Verified Allergy, Unknown, 09/21/23) Medications Current Medications Medications Dose Ordered Sig/Gibran Route Start Time Stop Time Status Last Admin Dose Admin Acetaminophen 325 mg Q4HP PRN PO 05/15/25 00:00 Acetaminophen/ Hydrocodone Bitart 1 tab Q4HP PRN PO 05/15/25 00:00 Ondansetron HCl 4 mg Q4HP PRN IV 05/15/25 00:00 Docusate Sodium 100 mg BIDPRN PRN PO 05/15/25 00:00 Morphine Sulfate 2 mg Q4HPRN PRN IV 05/15/25 00:00 Famotidine 20 mg Q12HR PO 05/15/25 10:00 Montelukast Sodium 10 mg HS PO 05/15/25 22:00 Ceftriaxone Sodium 50 ml @ 100 mls/hr DAILY@09 IV 05/15/25 09:00 Exam Vital Signs Vital Signs Date Time Temp Pulse Resp B/P (MAP) Pulse Ox O2 Delivery O2 Flow Rate FiO2 05/15/25 08:32 72 18 145/76 (99) 100 05/15/25 01:57 98.7 98.7 05/15/25 01:57 Room Air* 0 21 Exam General Appearance: Alert, Oriented X3, Cooperative, No acute distress HEENT: Atraumatic, PERRLA, EOMI, Mucous membrane moist/pink Respiratory: Clear to auscultation, Normal air movement Cardiovascular: Regular rate, Normal S1, Normal S2, No murmurs, no chest wall tenderness Abdominal: Normal bowel sounds, Soft, No tenderness, No hepatospenomegaly, No masses Extremities: No clubbing, No cyanosis, No edema, Normal pulses, No tenderness/swelling Skin: No rashes, No breakdown, No significant lesion Neuro: Normal gait, Normal speech, Strength at 5/5 X4 ext, Normal tone, S ensation intact, Cranial nerves 3-12 NL, Reflexes 2+ Psych/Mental Status: Mental status NL, Mood NL Labs/Xrays Labs Test 05/15/25 04:58 05/14/25 18:30 05/14/25 17:39 05/14/25 14:58 Range/Units White Blood Count 7.0 4.4-10.8 10^3/uL Red Blood Count 4.96 4.0-5.20 10^6/uL Hemoglobin 12.1 L 12.2-16.2 g/dL Hematocrit 36.9 36.0-46.0 % Mean Corpuscular Volume 74.3 L 80.0-100.0 fL Mean Corpuscular Hemoglobin 24.3 L 28.0-32.0 pg Mean Corpuscular Hemoglobin Concent 32.7 32.0-36.0 g/dL Red Cell Distribution Width 16.4 H 11.8-14.3 % Platelet Count 330 140-450 10^3/uL Mean Platelet Volume 6.9 6.9-10.8 fL Neutrophils (%) (Auto) 67.4 37.0-80.0 % Lymphocytes (%) (Auto) 23.7 10.0-50.0 % Monocytes (%) (Auto) 7.4 0.0-12.0 % Eosinophils (%) (Auto) 1.0 0.0-7.0 % Basophils (%) (Auto) 0.5 0.0-2.0 % Neutrophils # (Auto) 4.7 1.6-8.6 10 ^3/uL Lymphocytes # (Auto) 1.6 0.4-5.4 10 ^3/uL Monocytes # (Auto) 0.5 0-1.3 10 ^3/uL Eosinophils # (Auto) 0.1 0-0.8 10 ^3/uL Basophils # (Auto) 0 0-0.2 10 ^3/uL Nucleated Red Blood Cells 0.0 % Sodium Level 141 136-145 mmol/L Potassium Level 4.4 3.5-5.1 mmol/L Chloride Level 106 98-107 mmol/L Carbon Dioxide Level 27 20-31 mmol/L Anion Gap 8 5-15 Blood Urea Nitrogen 12 9-23 mg/dL Creatinine 0.65 0.550-1.02 mg/dL Glomerular Filtration Rate Calc 109 >90 mL/min BUN/Creatinine Ratio 18.5 10.0-20.0 Serum Glucose 103 74-106 mg/dL Calcium Level 9.3 8.7-10.4 mg/dL Iron Level 28 L 50-170 ug/dL Total Iron Binding Capacity 389 250-425 ug/dL Percent Iron Saturation 7.2 L 15-50 % Ferritin 2.8 L 10-291 ng/mL Total Bilirubin 0.3 0.2-1.0 mg/dL Aspartate Amino Transferase (AST) 15 13-40 U/L Alanine Aminotransferase (ALT) 14 7-40 U/L Alkaline Phosphatase 67 46-116 U/L Total Protein 7.7 5.7-8.2 g/dL Albumin 4.8 3.2-4.8 g/dL Vitamin B12 Level 430 211-911 pg/mL Thyroid Stimulating Hormone (TSH) 2.45 0.55-4.78 uIU/mL Free Thyroxine (T4) Calculated 1.49 0.89-1.76 ng/dL Free Triiodothyronine (T3) pg/mL 2.59 2.3-4.2 pg/mL Beta HCG, Quantitative 0.4 L 1.5-4.2 mIU/mL Urine Color Light-yellow Yellow Urine Clarity Turbid H Clear Urine pH 6.5 5.0-9.0 Urine Specific [place] 1.023 1.001-1.035 Urine Protein 1+ H Negative Urine Ketones Negative Negative Urine Blood Negative Negative /uL Urine Nitrite Negative Negative Urine Bilirubin Negative Negative Urine Urobilinogen Normal Negative mg/dL Urine Leukocyte Esterase Trace Negative /uL Urine RBC <1 0 - 4 /hpf Urine Microscopic WBC 11 H 0-5 /HPF Urine Squamous Epithelial Cells Mod <5 /hpf Urine Bacteria Few H None Seen /hpf Urine Hyaline Casts Few 0 - 2 /lpf Urine Mucus Few None Seen Urine Glucose Normal Normal mg/dL Troponin I High Sensitivity < 3 L </=34 ng/L B-Type Natriuretic Peptide 8.69 0-100 pg/mL SEPSIS Sepsis Screen Date sepsis recognized/suspect: May 14, 2025 Time Sepsis recognized/suspect: 1332 Recent Procedure: No On Antibiotic Therapy: No Respiratory Rate >20: No Heart Rate >90: No Temp<36 C (96.8 F) or >38.3 C: No SBP <90 or MAP <65 mmHG: No New Acute Mental Status Change: No Is the patient on CPAP, BIPAP,: No Physician Orders Stool Occult Blood (05/15/25 05:16) Urine Bacterial Culture (05/15/25 05:16) Blood Culture (05/15/25 05:16) Orthostatic Vital Signs (05/15/25 05:16) Carotid Duplx W Color Dop (05/15/25 05:16) Ekg On Admit (05/15/25 05:16) Transfer Orders (05/15/25 05:16) Echo 2d Mode Cardiac Dop (05/15/25 05:16) Famotidine Tablet (Pepcid Tablet) (05/15/25 10:00) Montelukast Tablet (Singulair Tablet) (05/15/25 22:00) Ceftriaxone 1gm/50ml D5w (Rocephin) (05/15/25 09:00) Cortisol Am (05/15/25 08:11) Cortisol Urinary Free 24hr (05/15/25 08:11) Cortisol Pm (05/15/25 08:11) Vital Signs Date Time Temp Pulse Resp B/P (MAP) Pulse Ox O2 Delivery O2 Flow Rate FiO2 05/15/25 08:32 72 18 145/76 (99) 100 05/15/25 01:57 98.7 71 14 135/70 (91) 100 98.7 05/15/25 01:57 71 14 98 Room Air* 0 21 Laboratory Tests Test 05/15/25 04:58 White Blood Count 7.0 10^3/uL (4.4-10.8) Assessment/Plan Assessment/Plan #Microcytic anemia likely iron-deficiency anemia due to bleeding - iron panel + ferritin and occult stool #History of supraventricular tachycardia - 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 Case discussed with Dr. Osborn Code status: Full code. Complex patient care discussion needed total 37 minutes Plan discussed with: Patient, Son My Orders Orders - KATHARINE WALLER RESIDENT Procedure Category Date Status Time Admit ADMIT 05/14/25 Transmitted 23:48 Allergies SHIRIN 05/14/25 In Process 23:48 Code Status CODE 05/14/25 Transmitted 23:48 Acetaminophen Tablet PHA 05/15/25 In Process (Tylenol Tablet) 00:00 Hydrocodone-Acet PHA 05/15/25 In Process 5/325mg Tab (Jemison 00:00 Ondansetron Hcl PHA 05/15/25 In Process (Zofran) 00:00 Docusate Sodium PHA 05/15/25 In Process Capsule (Colace 00:00 Condition: Fair SHIRIN 05/14/25 In Process 23:48 Morphine Sulfate PHA 05/15/25 In Process Injection 00:00 Ceftriaxone 1gm/50ml PHA 05/15/25 In Process D5w (Rocephin) 09:00 Date of Service: May 14, 2025 Billing Provider: YANDEL OSBORN MD Common Visit Codes: 21083-AWBMZFQ INP/OBS CARE (HIGH) Secondary Visit Codes: 62018-NIBYPFQS CARE PLAN 30 MINUTES KATHARINE WALLER RESIDENT May 15, 2025 08:46
[2025-05-15 09:00] VITALS: BP 150/76; PULSE 72; RESP 18; TEMP 97.8; O2SAT 99
[2025-05-15] MEDS: FAMOTIDINE 20 MG TAB PO SCH (10:57)
[2025-05-15 13:00] VITALS: BP 131/60; PULSE 90; RESP 19; TEMP 97.8; O2SAT 99
--- NOTE | 2025-05-15 14:06 | ECG ---
[facility] Test Date: 2025-05-14 Test Time: 13:44:26 Pat Name: ESTELA CHARLES Department: ED Room: [address] [place] [address] Gender: F Manager Post: mary : 1975 Requested By: KIEL RODRIGUEZ Order Number: [id number] Reading MD: Luca Burrows Measurements Intervals [place] Rate: 78 P: 53 W[place]: 150 QRS: 54 QRSD: 110 T: -25 QT: 375 QTc: 428 Interpretive Statements Sinus rhythm RSR' in V1 or V2, right VCD or RVH Borderline T abnormalities, diffuse leads Baseline wander in lead(s) V4 Electronically Signed On 05-16-2025 17:01:16 PDT by Luca Burrows Please click the below link to view image of tracing.
[2025-05-15] MEDS ORDERED: CEPH250C PO (15:56)
[2025-05-15 17:08] VITALS: BP 138/79; PULSE 84; RESP 20; TEMP 97.7; O2SAT 96
--- NOTE | 2025-05-15 17:32 | DVHPNRES ---
Progress Note Date Seen: May 15, 2025 Resident Creating Document: DEEPALI HAERD Objective vital signs Vital Sign Date Time Temp Pulse Resp B/P (MAP) Pulse Ox O2 Delivery O2 Flow Rate FiO2 05/15/25 17:08 97.7 84 20 138/79 (98) 96 97.7 05/15/25 16:54 Room Air* 0 21 Total Intake and Output 05/14/25 05/14/25 05/15/25 15:00 23:00 07:00 Intake Total 50 ml Balance 50 ml medications Current Medications Medications Dose Ordered Sig/Gibran Route Start Time Stop Time Status Last Admin Dose Admin Acetaminophen 325 mg Q4HP PRN PO 05/15/25 00:00 Acetaminophen/ Hydrocodone Bitart 1 tab Q4HP PRN PO 05/15/25 00:00 Ondansetron HCl 4 mg Q4HP PRN IV 05/15/25 00:00 Docusate Sodium 100 mg BIDPRN PRN PO 05/15/25 00:00 Morphine Sulfate 2 mg Q4HPRN PRN IV 05/15/25 00:00 Famotidine 20 mg Q12HR PO 05/15/25 10:00 05/15/25 10:57 20 MG Montelukast Sodium 10 mg HS PO 05/15/25 22:00 Ceftriaxone Sodium 50 ml @ 100 mls/hr DAILY@09 IV 05/15/25 09:00 05/15/25 10:57 100 MLS/HR laboratory and microbiology Laboratory Tests 05/15/25 04:58 Test 05/15/25 04:58 Range/Units Serum Glucose 103 74-106 mg/dL My Orders My Orders Orders - DEEPALI HEARD Procedure Category Date Status Time Cortisol Urinary Free LAB 05/15/25 Logged 24hr 08:11 Discharge DISCHARGE 05/15/25 Transmitted 14:51 Schedule For Dc SHIRIN 05/15/25 In Process Clinic F/U 16:37 DEEPALI HEARD May 15, 2025 17:32
--- NOTE | 2025-05-15 18:25 | DVHDSRES ---
Discharge Summary Date of Admission Resident Creating Document: DEEPALI HEARD May 14, 2025 at 23:48 Date of Discharge: May 15, 2025 Admitting Diagnosis Presyncope Labs/Diagnostic Data: Laboratory Results Test 05/15/25 15:22 05/15/25 08:45 05/15/25 04:58 05/14/25 18:30 Cortisol PM Sample 19.34 ug/dL (3.44-16.76) Cortisol AM Sample 21.01 ug/dL (5.27-22.45) White Blood Count 7.0 10^3/uL (4.4-10.8) Red Blood Count 4.96 10^6/uL (4.0-5.20) Hemoglobin 12.1 g/dL (12.2-16.2) Hematocrit 36.9 % (36.0-46.0) Mean Corpuscular Volume 74.3 fL (80.0-100.0) Mean Corpuscular Hemoglobin 24.3 pg (28.0-32.0) Mean Corpuscular Hemoglobin Concent 32.7 g/dL (32.0-36.0) Red Cell Distribution Width 16.4 % (11.8-14.3) Platelet Count 330 10^3/uL (140-450) Mean Platelet Volume 6.9 fL (6.9-10.8) Neutrophils (%) (Auto) 67.4 % (37.0-80.0) Lymphocytes (%) (Auto) 23.7 % (10.0-50.0) Monocytes (%) (Auto) 7.4 % (0.0-12.0) Eosinophils (%) (Auto) 1.0 % (0.0-7.0) Basophils (%) (Auto) 0.5 % (0.0-2.0) Neutrophils # (Auto) 4.7 10 ^3/uL (1.6-8.6) Lymphocytes # (Auto) 1.6 10 ^3/uL (0.4-5.4) Monocytes # (Auto) 0.5 10 ^3/uL (0-1.3) Eosinophils # (Auto) 0.1 10 ^3/uL (0-0.8) Basophils # (Auto) 0 10 ^3/uL (0-0.2) Nucleated Red Blood Cells 0.0 % Erythrocyte Sedimentation Rate 11 mm/hr (0-20) Sodium Level 141 mmol/L (136-145) Potassium Level 4.4 mmol/L (3.5-5.1) Chloride Level 106 mmol/L (98-107) Carbon Dioxide Level 27 mmol/L (20-31) Anion Gap 8 (5-15) Blood Urea Nitrogen 12 mg/dL (9-23) Creatinine 0.65 mg/dL (0.550-1.02) Glomerular Filtration Rate Calc 109 mL/min (>90) BUN/Creatinine Ratio 18.5 (10.0-20.0) Serum Glucose 103 mg/dL (74-106) Calcium Level 9.3 mg/dL (8.7-10.4) Iron Level 28 ug/dL (50-170) Total Iron Binding Capacity 389 ug/dL (250-425) Percent Iron Saturation 7.2 % (15-50) Ferritin 2.8 ng/mL (10-291) Total Bilirubin 0.3 mg/dL (0.2-1.0) Aspartate Amino Transferase (AST) 15 U/L (13-40) Alanine Aminotransferase (ALT) 14 U/L (7-40) Alkaline Phosphatase 67 U/L (46-116) Total Protein 7.7 g/dL (5.7-8.2) Albumin 4.8 g/dL (3.2-4.8) Vitamin B12 Level 430 pg/mL (211-911) Thyroid Stimulating Hormone (TSH) 2.45 uIU/mL (0.55-4.78) Free Thyroxine (T4) Calculated 1.49 ng/dL (0.89-1.76) Free Triiodothyronine (T3) pg/mL 2.59 pg/mL (2.3-4.2) Beta HCG, Quantitative 0.4 mIU/mL (1.5-4.2) Urine Color Light-yellow (Yellow) Urine Clarity Turbid (Clear) Urine pH 6.5 (5.0-9.0) Urine Specific [place] 1.023 (1.001-1.035) Urine Protein 1+ (Negative) Urine Ketones Negative (Negative) Urine Blood Negative /uL (Negative) Urine Nitrite Negative (Negative) Urine Bilirubin Negative (Negative) Urine Urobilinogen Normal mg/dL (Negative) Urine Leukocyte Esterase Trace /uL (Negative) Urine RBC <1 /hpf (0 - 4) Urine Microscopic WBC 11 /HPF (0-5) Urine Squamous Epithelial Cells Mod /hpf (<5) Urine Bacteria Few /hpf (None Seen) Urine Hyaline Casts Few /lpf (0 - 2) Urine Mucus Few (None Seen) Urine Glucose Normal mg/dL (Normal) Test 05/14/25 17:39 05/14/25 14:58 Troponin I High Sensitivity < 3 ng/L (</=34) B-Type Natriuretic Peptide 8.69 pg/mL (0-100) Other Laboratory Tests 05/15/25 04:58 Brief Hx & Hospital Course: 49-year-old female with past medical history of hypertension, dyslipidemia, hypothyroid, GERD, SVT, presented to the ER with the history of dizziness with blurry vision, she did not lose consciousness, she did not feel confused after the episode, she did not fall down. She denies any irregular or heavy bleeding during menstruation, she was on her day 3 of menstruation.The blurry vision was not associated with any scotoma, halos or no other abnormality. Patient admitted with probable diagnosis of orthostatic presyncope, ruling out acute coronary syndrome and acute intracranial pathology. CT scan of the head ruled out any acute abnormality. However CT scan revealed empty sella. Patient was advised to follow up with PCP and Cardiology upon discharge. Understood the treatment plan and her diagnosis. EKG reveals no abnormality. Patient was advised to follow up with [facility] clinic in an week and eventual cardiology consult for event monitor. Discontinued losartan, continue metoprolol due to history of SVT. General Appearance: Alert, Oriented X3, Cooperative, Mild distress HEENT: Atraumatic, Mucous membranes moist/pink Respiratory: Clear to auscultation, Normal air movement, No added sounds Cardiovascular: Regular rate, Normal S1, Normal S2, No murmurs Abdominal/ : Active bowel sounds, Soft, no distention, no tenderness Extremities: No edema, Normal pulses, No tenderness/swelling Skin: No Significant rash, except past surgical scars Neuro: Normal speech, sensorimotor deficits none Psych/Mental Status: Mental status NL, Mood NL Nurse was there as welfare project manager during examination Operations or Procedures CXR: No abnormality CT scan: No acute intracranial abnormality, expanded empty sella. Condition at Discharge: Stable Final Diagnosis/Problems List #Transient blurry vision secondary to probable orthostatic presyncope #Empty sella #Microcytic anemia likely iron-deficiency anemia due to bleeding - iron panel + ferritin and occult stool #History of supraventricular tachycardia - probable atrioventricular lindsey reentry tachycardia #Grade 1 obesity on GLP 1 #Urinary tract infection-urine culture, blood culture # to rule out #CAD ruled out in 2023 #Hypothyroidism-levothyroxine 125 #GERD-omeprazole #History of hypertension-losartan, target BP 150/90 #Likely empty sella syndrome #Dyslipidemia-on simvastatin #Vitamin-D deficiency #Seasonal allergy on montelukast Discharge Disposition: Home Discharge Instruct/Medications Diet: Consistent carbohydrate Activity: No Restrictions, As Tolerated Follow Up/Referral: Follow up with PCP in 1 week Medications: As per EMR Scheduled Cephalexin (Keflex Capsule), 1 CAP PO QID Levothyroxine Sodium (Levothyroxine Sodium), 125 MCG PO QAM, (Reported) Metoprolol Succinate (Metoprolol Succinate Er), 1 TAB PO DAILY Omeprazole (Gnp Omeprazole), 20 MG PO DAILY, (Reported) Simvastatin (Simvastatin), 20 MG PO DAILY, (Reported) Discontinued Medications Magnesium Oxide (Magnesium Oxide), 400 MG PO DAILY, (Reported) Metoprolol Tartrate (Metoprolol Tartrate), 25 MG PO DAILY, (Reported) Discharge Statement: "Patient was advised to return to the ER or call 911 if any headaches, dizziness, shortness of breath, chest pain, abdominal pain, bleeding, fevers, or worsening of medical condition. Patient was counseled about treatment plan, medications, possible side effects, patientverbalized understanding. All questions were answered to the best of my ability. This discharge took greater then 30 minutes in planning, reviewing documentation, counseling the patient, and discussing with other team members." ASSESSMENT ASSESSMENT Assessment vasovagal syncope Date of Service: May 15, 2025 Billing Provider: HUY AHUJA MD Common Visit Codes: 76107-IQT/OBS DISCH DAY >30min DEEPALI HEARD RESIDENT May 15, 2025 18:25 [place] RESIDENT May 17, 2025 02:38 HUY AHUJA MD May 17, 2025 22:42
[2025-05-15] MEDS ORDERED: METO25TA93 PO (19:04)
[2025-05-15] MEDS ORDERED: MONTELUKAST SODIUM 10 MG TAB PO SCH (22:00)
== END 2025-05-15 17:11 | disposition home or self-care (01) | DRG 644 ==
LOC: ER 13:29 → OVERFLOW 23:48
PROVIDERS: ADMIT Student in an Organized Health Care Education/Training Program; ATTEND Student in an Organized Health Care Education/Training Program
DX: E23.6 Other disorders of pituitary gland (principal); I47.19 Other supraventricular tachycardia; N39.0 Urinary tract infection, site not specified; D50.0 Iron deficiency anemia secondary to blood loss (chronic); I95.1 Orthostatic hypotension; K21.9 Gastro-esophageal reflux disease without esophagitis; I10 Essential (primary) hypertension; E03.9 Hypothyroidism, unspecified; E78.5 Hyperlipidemia, unspecified; E11.9 Type 2 diabetes mellitus without complications; E55.9 Vitamin D deficiency, unspecified; J30.2 Other seasonal allergic rhinitis; E66.811 Obesity, class 1; Z68.33 Body mass index [BMI] 33.0-33.9, adult; Z79.899 Other long term (current) drug therapy
CPT/HCPCS: 36415; 70450; 71045; 80048; 80053; 81001; 82533; 82607; 82728; 83540; 83550; 83880; 84439; 84443; 84481; 84484; 84702; 85025; 85652; 87040; 87086; 93005; 93886; G0378